=== PATIENT | male | born 1985 | race Two or more races ===

== ENCOUNTER 2022-05-06 19:30 | Emergency (ER) | payer OTHER ==
[~2022-05-06] VITALS: Ht 175.3 cm; Wt 72.6 kg
[2022-05-07] MEDS ORDERED: DOLOGESIC 500-1 EACH PO (02:48)
[2022-05-07] MEDS ORDERED: ZITHROMAX500 MG PO (02:48)
== END 2022-05-07 04:21 | disposition home or self-care (01) ==
LOC: ER 19:30
DX: R50.9 Fever, unspecified (principal); R53.81 Other malaise; Z20.822 Contact with and (suspected) exposure to COVID-19